=== PATIENT | female | born 1960 | race American Indian/Alaskan Native ===

== ENCOUNTER 2019-01-21 20:24 | Emergency (ER) | payer SELFPAY ==
[2019-01-21 20:25] VITALS: BMI 35.3
[2019-01-21 20:37] VITALS: TEMP 97.5
--- NOTE | 2019-01-21 20:47 | ED PDOC ---
Arrival/HPI <Miguel Wilson - Last Filed: 01/21/19 21:39> - General Historian: Patient - History of Present Illness Narrative History of Present Illness (Text): 01/21/19 20:44 58-year-old female presents to the emergency room complaining of 4 days of right calf pain and swelling, patient states that she had a history of spider bite that became infected years ago to the right romo which required wound debridement. Otherwise she reports no fever, trauma, injury, chest pain, shortness of breath, recent travel. PMD ktar <Slime Wolff PA-C - Last Filed: 01/21/19 23:44> - General Chief Complaint: Lower Extremity Problem/Injury Time Seen by Provider: 01/21/19 20:26 Past Medical History - Tetanus Immunization Tetanus Immunization: Unknown - Neurological HX Cerebrovascular Accident: No - Endocrine/Metabolic Hx Diabetes Mellitus Type 2: Yes (Controlled with diet) - Hematological/Oncological Hx Anemia: Yes - Musculoskeletal/Rheumatological Hx Arthritis: Yes (knees) - Psychiatric Hx Psychophysiologic Disorder: No Hx Substance Use: No - Surgical History Hx Gastric Bypass Surgery: Yes (Lap band) Other/Comment: Ligament replacement in right kneew (2013). Surgery on lower right leg after spider bite - skin grafts on anterior and posterior of leg - Anesthesia Hx Anesthesia: Yes Hx Anesthesia Reactions: No Hx Malignant Hyperthermia: No - Suicidal Assessment Feels Threatened In Home Enviroment: No <Slime Wolff PA-C - Last Filed: 01/21/19 23:44> Family/Social History Family/Social History: No Known Family HX Smoking Status: Former Smoker Hx Alcohol Use: No Hx Substance Use: No <Slime Wolff PA-C - Last Filed: 01/21/19 23:44> Allergies/Home Meds <Miguel Wilson - Last Filed: 01/21/19 21:39> <Slime Wolff PA-C - Last Filed: 01/21/19 23:44> Allergies/Adverse Reactions: Allergies No Known Allergies Allergy (Verified 09/05/12 09:08) Home Medications: Home Meds Medication Instructions Recorded Confirmed Ibuprophen 400 mg PO PRN 09/05/12 09/05/12 Iron [Spatone] 5 mg PO DAILY 09/05/12 09/05/12 Vitamin D 50,000 units PO MON 09/05/12 09/05/12 Review of Systems - Review of Systems Constitutional: absent: Fatigue, Fevers Respiratory: absent: SOB, Cough Cardiovascular: absent: Chest Pain Musculoskeletal: Arthralgias, Joint Swelling. absent: Back Pain, Neck Pain Skin: absent: Rash, Skin Lesions Neurological: absent: Headache, Dizziness <Slime Wolff PA-C - Last Filed: 01/21/19 23:44> Physical Exam Vital Signs Temp Pulse Resp BP Pulse Ox 01/21/19 20:26 97.5 F L 90 18 127/77 99 <Miguel Wilson - Last Filed: 01/21/19 21:39> Vital Signs Temp Pulse Resp BP Pulse Ox 01/21/19 20:26 97.5 F L 90 18 127/77 99 Temperature: Afebrile Blood Pressure: Normal Pulse: Regular Respiratory Rate: Normal Appearance: Positive for: Well-Appearing, Non-Toxic, Comfortable Pain Distress: None Mental Status: Positive for: Alert and Oriented X 3 - Systems Exam Head: Present: Atraumatic, Normocephalic Pupils: Present: PERRL Extroacular Muscles: Present: EOMI Conjunctiva: Present: Normal Mouth: Present: Moist Mucous Membranes Neck: Present: Normal Range of Motion Respiratory/Chest: Present: Clear to Auscultation, Good Air Exchange. No: Respiratory Distress, Accessory Muscle Use Cardiovascular: Present: Regular Rate and Rhythm, Normal S1, S2. No: Murmurs Back: Present: Normal Inspection Upper Extremity: Present: Normal Inspection. No: Cyanosis, Edema Lower Extremity: Present: Edema (+mild edema to the R romo and calf with +erythema and mildly warm to touch to the mid-lower R romo and calf, +surgical scar noted to the R romo and calf), NORMAL PULSES, Normal ROM, Neurovascularly Intact, Capillary Refill < 2 s. No: CALF TENDERNESS, Tenderness Neurological: Present: GCS=15, CN II-XII Intact, Speech Normal, Motor Func Grossly Intact, Normal Sensory Function Skin: Present: Warm, Dry, Normal Color. No: Rashes Psychiatric: Present: Alert, Oriented x 3, Normal Insight, Normal Concentration <Slime Wolff PA-C - Last Filed: 01/21/19 23:44> Medical Decision Making - RAD Interpretation Radiology Orders: 01/21/19 20:40 DUPLEX LOWER EXTRM VEIN RIGHT [US] Stat - Medication Orders Current Medication Orders: Discontinued Medications Cephalexin Monohydrate (Keflex) 500 mg PO STAT STA; Protocol Stop: 01/21/19 21:24 Tetanus/Reduced Diphtheria/Acell Pertussis (Boostrix Vaccine Inj) 0.5 ml IM .ONCE ONE Stop: 01/21/19 21:24 Trimethoprim/Sulfamethoxazole (Bactrim Ds Tab) 2 tab PO STAT STA; Protocol Stop: 01/21/19 21:24 <Miguel Wilson - Last Filed: 01/21/19 21:39> ED Course and Treatment: 01/21/19 20:46 Plan : - US duplex RLE - keflex po - bactrim ds po - tdap IM US duplex RLE : no DVT Ultrasound results discussed with the patient. Diagnosis of cellulitis discussed with the patient in great detail. Advised to keep her right leg elevated and to return to the emergency room at any time for any new or worsening symptoms especially increasing redness, swelling or pain, as well as f ever. Advised to follow up with primary care physician in 1-2 days without fail. Advised to take medication as prescribed. Return to the emergency room at any time for any new or worsening symptoms. Patient states she fully agrees with and understands discharge instructions. States that she agrees with the plan and disposition. Verbalized and repeated discharge instructions and plan. I have given the patient opportunity to ask any additional questions. - RAD Interpretation Radiology Orders: 01/21/19 20:40 DUPLEX LOWER EXTRM VEIN RIGHT [US] Stat <Slime Wolff PA-C - Last Filed: 01/21/19 23:44> - PA / CONCRETE SPREADER / Resident Statement [facility] has reviewed & agrees with the documentation as recorded. <Miguel Wilson - Last Filed: 01/21/19 21:39> - PA / CONCRETE SPREADER / Resident Statement [facility] has reviewed & agrees with the documentation as recorded. <Slime Wolff PA-C - Last Filed: 01/21/19 23:44> Disposition/Present on Arrival <Miguel Wilson - Last Filed: 01/21/19 21:39> - Present on Arrival Any Indicators Present on Arrival: No History of DVT/PE: No History of Uncontrolled Diabetes: No Urinary Catheter: No History of Decub. Ulcer: No History Surgical Site Infection Following: None - Disposition Have Diagnosis and Disposition been Completed?: Yes Disposition Time: 21:30 Patient Plan: Discharge <Slime Wolff PA-C - Last Filed: 01/21/19 23:44> - Disposition Diagnosis: Cellulitis of right leg Disposition: HOME/ ROUTINE Condition: STABLE Discharge Instructions (ExitCare): Cellulitis (ED) Additional Instructions: Thank you for letting us take care of you today. You were treated for cellulitis R leg. The emergency medical care you received today was directed at your acute symptoms. If you were prescribed any medication, please fill it and take as directed. It may take several days for your symptoms to resolve. Return to the Emergency Department if your symptoms worsen, do not improve, or if you have any other problems. Please contact your doctor in 2 days for re-evaluation and follow up. Bring any paperwork you were given at discharge with you along with any medications you are taking to your follow up visit. Our treatment cannot replace ongoing medical care by a primary care provider (PCP) outside of the emergency department. Thank you for allowing the [facility] team to be part of your care today. Your US doppler of the R leg showed no DVT. Prescriptions: Cephalexin [Keflex] 500 mg PO Q6 #28 capsule Sulfamethoxazole/Trimethoprim [Bactrim DS 800 mg-160 mg] 2 tab PO BID #28 tab Forms: [employer] (Italian), WORK NOTE
[2019-01-21] MEDS ORDERED: Tmp-Smz 800 mg-160 mg DS Tab PO STA (21:23)
[2019-01-21] MEDS ORDERED: TDAP Vaccine 0.5 mL Syr IM ONE (21:23)
[2019-01-21 22:08] VITALS: BP 124/71; PULSE 71; RESP 16; O2SAT 100
--- NOTE | 2019-01-22 09:06 | US ---
PROCEDURE: Right lower extremity venous US HISTORY: Leg pain and swelling. Evaluate for DVT. PHYSICIAN(S): Juan David Alberto M.D. TECHNIQUE: Duplex sonography and color-flow Doppler with graded compression were used to evaluate the deep venous system of the right lower extremity. The tibial veins are not well seen FINDINGS: The visualized deep venous system of the right lower extremity is sonographically normal and compressible. Normal waveforms and augmentation are seen. There is no sonographic evidence for deep venous thrombosis in the visualized segments of the right lower extremity. IMPRESSION: 1. No sonographic evidence for deep venous thrombosis in the visualized segments of the right lower extremity.
== END 2019-01-21 21:50 | disposition home or self-care (01) ==
LOC: ED 20:24
DX: L03.115 Cellulitis of right lower limb (principal); E11.9 Type 2 diabetes mellitus without complications; Z87.891 Personal history of nicotine dependence; Z98.84 Bariatric surgery status; Z23 Encounter for immunization